=== PATIENT | female | born 1980 | race Caucasian/White ===

== ENCOUNTER 2018-10-13 12:04 | Inpatient (IN) | payer OTHER ==
[2018-10-13 12:31] LABS: ADD MAN DIFF? NO
[2018-10-13 12:35] LABS: BASOPHIL # 0.1 10^3/ul (0.0-0.1); BASOPHILS % 0.5 % (0.0-2.0); EOSINOPHILS % 0.2 % (0.0-7.0); HEMATOCRIT 38.5 % (37.0-47.0); HEMOGLOBIN 12.7 g/dl (12.0-16.0); LYMPHOCYTES # 2.9 10^3/ul (0.8-2.9); LYMPHOCYTES % 28.2 % (15.0-51.0); MEAN CORPUSCULAR VOLUME 90.8 fl (82.0-101.0); MEAN PLATELET VOLUME 11.6 fl (7.4-10.4); MONOCYTE # 0.6 10^3/ul (0.3-0.9); MONOCYTES % 5.4 % (0.0-11.0); NEUTROPHIL # 6.6 10^3/ul (1.6-7.5); PLATELET COUNT 187 10^3/UL (140-415); RED BLOOD COUNT 4.24 10^6/ul (4.20-5.40); RED CELL DISTRIBUTION WIDTH 12.9 % (11.5-14.5)
[2018-10-13 12:35] LABS: WHITE BLOOD COUNT 10.1 10^3/ul (4.8-10.8)
[2018-10-13 12:40] LABS: ADD UMIC NO; UR ASCORBIC ACID NEGATIVE (NEGATIVE); UR BILIRUBIN (Dip) NEGATIVE (NEGATIVE); UR BLOOD (Dip) NEGATIVE (NEGATIVE); UR CLARITY CLEAR (CLEAR); UR COLOR COLORLESS (YELLOW); UR GLUCOSE (Dip) NEGATIVE (NEGATIVE); UR KETONES (Dip) NEGATIVE (NEGATIVE); UR LEUKOCYTE ESTERASE (Dip) NEGATIVE Leu/ul (NEGATIVE); UR NITRITE (Dip) NEGATIVE (NEGATIVE); UR SPECIFIC GRAVITY (Dip) 1.001 (1.003-1.030); UR TOTAL PROTEIN (Dip) NEGATIVE (NEGATIVE); UR UROBILINOGEN (Dip) NEGATIVE (NEGATIVE)
[2018-10-13 12:53] LABS: ALANINE AMINOTRANSFERASE 14 IU/L (13-69); ALBUMIN 3.6 g/dl (3.3-4.9); ALBUMIN/GLOBULIN RATIO 1.09; ALKALINE PHOSPHATASE 291 IU/L (42-121); ANION GAP 9 (5-13); ASPARTATE AMINO TRANSFERASE 26 IU/L (15-46); BILIRUBIN,INDIRECT 0.5 mg/dl (0-1.1); BILIRUBIN,TOTAL 0.5 mg/dl (0.2-1.3); BLOOD UREA NITROGEN 7 mg/dl (7-20); CALCIUM 9.4 mg/dl (8.4-10.2); CARBON DIOXIDE 21 mmol/L (21-31); CHLORIDE 107 mmol/L (97-110); CREATININE 0.47 mg/dl (0.44-1.00); Estimated GFR > 60 mL/min (>60); GLUCOSE 81 mg/dl (70-220); SODIUM 137 mmol/L (135-144); TOTAL PROTEIN 6.9 g/dl (6.1-8.1); URIC ACID 4.5 mg/dl (3.1-7.9)
[2018-10-13 12:55] LABS: INR 0.77; PROTIME 10.9 Sec (11.9-14.9); PT RATIO 0.9
[2018-10-13 12:57] LABS: PARTIAL THROMBOPLASTIN TIME 27.5 Sec (23.0-35.0)
[2018-10-13] MEDS ORDERED: OXYTOCIN 30 UNITS/LR 500 ML IV ×2 (14:00)
[2018-10-13] MEDS ORDERED: BUTORPHANOL 2 MG INJ IV (14:00)
[2018-10-13] MEDS ORDERED: MISOPROSTOL 200 MCG TAB PR (14:00)
[2018-10-13] MEDS ORDERED: CARBOPROST 250 MCG INJ IM (14:00)
[2018-10-13] MEDS ORDERED: LIDOCAINE 1% (MPF) 30 ML INJ INJ (14:00)
[2018-10-13] MEDS ORDERED: METHYLERGONOVINE 0.2 MG INJ IM (14:00)
[2018-10-13] MEDS: LACTATED RINGER'S 1,000 ML IV (14:10)
[2018-10-13 14:12] LABS: GLUCOSE 75 mg/dl (70-220)
[2018-10-13] MEDS: DEXTROSE 5%-LR 1,000 ML IV (15:09)
[2018-10-13] MEDS: OXYTOCIN 30 UNITS/LR 500 ML IV (15:11)
[2018-10-13 20:47] LABS: RAPID PLASMA REAGIN NONREACTIVE (NR)
[2018-10-14] MEDS: LACTATED RINGER'S 1,000 ML IV ×2 (05:15→13:04)
[2018-10-14] MEDS: DEXTROSE 5%-LR 1,000 ML IV ×2 (07:32→18:50)
[2018-10-14] MEDS ORDERED: FENTAnyl 50 MCG/ML VIAL (12:37)
[2018-10-14] MEDS ORDERED: FENTAnyl 2MCG/ML-ROPIV 0.2% 100 ML (12:37)
[2018-10-14] MEDS ORDERED: FENTAnyl 2MCG/ML-ROPIV 0.2% 100 ML BAG EPI (13:00)
[2018-10-14] MEDS ORDERED: NALOXONE (0.4 MG/ML) INJ IV (13:00)
[2018-10-14] MEDS: OXYTOCIN 30 UNITS/LR 500 ML IV ×2 (15:43→22:03)
[2018-10-14] MEDS: MISOPROSTOL 200 MCG TAB PO (15:53)
[2018-10-14] MEDS: MINERAL OIL LIGHT 10 ML VIAL TOP (15:55)
[2018-10-14] MEDS: MAGNESIUM SULFATE 4 GM/100 ML 100 ML IV (17:06)
[2018-10-14] MEDS: MAGNESIUM SULFATE 20 GM/500 ML 500 ML IV (17:26)
[2018-10-14] MEDS: LACTATED RINGER'S 1,000 ML IV* (18:50)
[2018-10-14] MEDS ORDERED: OXYTOCIN 30 UNITS/LR 500 ML IV (19:00)
[2018-10-14] MEDS ORDERED: BENZOCAINE 20% 56 ML SPRAY TOP (19:00)
[2018-10-14] MEDS ORDERED: WITCH HAZEL/GLYCERIN PAD PR (19:00)
[2018-10-14] MEDS ORDERED: ONDANSETRON 4 MG INJ IV (19:00)
[2018-10-14] MEDS ORDERED: DIBUCAINE 1% 30 GM OINT TOP (19:00)
[2018-10-14] MEDS ORDERED: ACETAMINOPHEN 325 MG TAB PO (19:00)
[2018-10-14] MEDS ORDERED: CARBOPROST 250 MCG INJ IM (19:00)
[2018-10-14] MEDS ORDERED: LANOLIN HPA 1 PKT TOP (19:00)
[2018-10-14] MEDS ORDERED: DIPHENHYDRAMINE 50 MG INJ IV (19:00)
[2018-10-14] MEDS ORDERED: MISOPROSTOL 200 MCG TAB PR (19:00)
[2018-10-14] MEDS ORDERED: METHYLERGONOVINE 0.2 MG INJ IM (19:00)
[2018-10-14] MEDS ORDERED: ZOLPIDEM 5 MG TAB PO (19:00)
[2018-10-14] MEDS ORDERED: SENNA/DOCUSATE NA (8.6MG/50MG) TAB PO (19:00)
[2018-10-14] MEDS ORDERED: OXYCODONE/ASPIRIN (4.88/325) TAB PO (19:00)
[2018-10-15] MEDS: IBUPROFEN 600 MG TAB PO ×5 (00:19→23:38)
[2018-10-15 01:17] LABS: MAGNESIUM 4.7 mg/dl (1.7-2.5)
[2018-10-15] MEDS: LACTATED RINGER'S 1,000 ML IV* ×3 (02:50→18:50)
[2018-10-15] MEDS: DEXTROSE 5%-LR 1,000 ML IV ×3 (02:50→18:50)
[2018-10-15] MEDS: MAGNESIUM SULFATE 20 GM/500 ML 500 ML IV ×2 (03:13→17:00)
[2018-10-15 07:14] LABS: ADD MAN DIFF? NO
[2018-10-15 07:19] LABS: BASOPHILS % 0.3 % (0.0-2.0); EOSINOPHILS % 0.3 % (0.0-7.0); HEMATOCRIT 38.8 % (37.0-47.0); HEMOGLOBIN 12.9 g/dl (12.0-16.0); LYMPHOCYTES % 16.3 % (15.0-51.0); MEAN CORPUSCULAR HGB CONC 33.2 g/dl (32.0-37.0); MEAN CORPUSCULAR VOLUME 90.2 fl (82.0-101.0); MEAN PLATELET VOLUME 11.3 fl (7.4-10.4); MONOCYTE # 0.6 10^3/ul (0.3-0.9); NEUTROPHIL # 9.3 10^3/ul (1.6-7.5); NEUTROPHILS % 77.6 % (39.0-77.0); PLATELET COUNT 167 10^3/UL (140-415); RED CELL DISTRIBUTION WIDTH 13.2 % (11.5-14.5)
[2018-10-15 07:40] LABS: MAGNESIUM 6.1 mg/dl (1.7-2.5)
[2018-10-15 13:33] LABS: MAGNESIUM 5.4 mg/dl (1.7-2.5)
[2018-10-15 22:05] LABS: RHOGAM PROFILE 1 1
[2018-10-16] MEDS: IBUPROFEN 600 MG TAB PO ×2 (05:46→12:34)
[2018-10-16] MEDS: DIPHTH/TET/ACEL PERTUSS (ADULT) 0.5 ML VIAL IM* (09:00)
[2018-10-16] MEDS: MEASLES,MUMPS,RUBELLA VACCINE INJ SC* (09:00)
== END 2018-10-16 15:26 | disposition home or self-care (01) | DRG 807 ==
LOC: OBT 12:04 → L-D 12:05 → PP1 10-14 18:26 → OBT 12:36 → L-D 12:36
PROVIDERS: Pediatrics Neonatal-Perinatal Medicine
PROC: 10E0XZZ Delivery of Products of Conception, External Approach (ICD-10-PCS; principal; 2018-10-15)
DX: O13.4 Gestational [pregnancy-induced] hypertension without significant proteinuria, complicating childbirth (principal); Z37.0 Single live birth; O14.94 Unspecified pre-eclampsia, complicating childbirth; O24.420 Gestational diabetes mellitus in childbirth, diet controlled; Z3A.37 37 weeks gestation of pregnancy
CPT/HCPCS: 62322; 76815; 76818; 80053; 81003; 82947; 82962; 83735; 84560; 85025; 85610; 85730; 86592; 86850; 86885; 86900; 86901

== ENCOUNTER 2019-02-08 09:55 | Day surgery (SDC) | payer OTHER ==
[2019-02-08] MEDS ORDERED: PROPOFOL 20 ML (11:26)
[2019-02-08] MEDS ORDERED: ROCURONIUM 50 MG INJ (11:26)
[2019-02-08] MEDS ORDERED: ONDANSETRON 4 MG INJ (11:26)
[2019-02-08] MEDS ORDERED: NEOSTIGMINE 3 MG/3 ML SYRINGE (11:26)
[2019-02-08] MEDS ORDERED: GLYCOPYRROLATE 0.4 MG INJ (11:26)
[2019-02-08] MEDS ORDERED: MIDAZOLAM 1 MG/ML 2 ML INJ (11:26)
[2019-02-08] MEDS ORDERED: FENTAnyl 50 MCG/ML VIAL (11:26)
[2019-02-08] MEDS ORDERED: CEFAZOLIN 1 GM INJ (11:26)
[2019-02-08 11:27] LABS: ADD MAN DIFF? NO
[2019-02-08] MEDS ORDERED: DEXAMETHASONE 4 MG/ML 5 ML INJ (11:27)
[2019-02-08 11:29] LABS: BASOPHIL # 0.1 10^3/ul (0.0-0.1); BASOPHILS % 0.6 % (0.0-2.0); EOSINOPHILS # 0.1 10^3/ul (0.0-0.5); EOSINOPHILS % 1.2 % (0.0-7.0); HEMATOCRIT 41.5 % (37.0-47.0); HEMOGLOBIN 13.6 g/dl (12.0-16.0); LYMPHOCYTES # 2.3 10^3/ul (0.8-2.9); LYMPHOCYTES % 29.4 % (15.0-51.0); MEAN CORPUSCULAR HEMOGLOBIN 29.9 pg (29.0-33.0); MEAN CORPUSCULAR HGB CONC 32.8 g/dl (32.0-37.0); MEAN CORPUSCULAR VOLUME 91.2 fl (82.0-101.0); MEAN PLATELET VOLUME 10.6 fl (7.4-10.4); MONOCYTE # 0.5 10^3/ul (0.3-0.9); MONOCYTES % 5.9 % (0.0-11.0); NEUTROPHIL # 4.9 10^3/ul (1.6-7.5); NEUTROPHILS % 62.6 % (39.0-77.0); PLATELET COUNT 281 10^3/UL (140-415); RED BLOOD COUNT 4.55 10^6/ul (4.20-5.40)
[2019-02-08 11:29] LABS: WHITE BLOOD COUNT 7.8 10^3/ul (4.8-10.8)
[2019-02-08] MEDS ORDERED: ROPIVACAINE 0.5 % 30 ML VIAL (11:40)
[2019-02-08] MEDS ORDERED: hydrALAzine 20 MG INJ IV (12:00)
[2019-02-08] MEDS ORDERED: HYDROmorphONE 1 MG/5 ML IV SYRINGE IV ×2 (12:00)
[2019-02-08] MEDS ORDERED: LACTATED RINGER'S 1,000 ML IV (12:00)
[2019-02-08] MEDS ORDERED: LABETALOL HCL 20MG INJ IV (12:00)
[2019-02-08] MEDS ORDERED: TRIMETHOBENZAMIDE 100 MG/ML VIAL IM (12:00)
[2019-02-08] MEDS ORDERED: ALBUTEROL 0.083% (NEB) 2.5 MG/3 ML AMP HHN (12:00)
[2019-02-08] MEDS ORDERED: OXYCODONE/ACETAMINOPHEN (5/325) TAB PO ×2 (12:00)
[2019-02-08] MEDS ORDERED: EPHEDrine 25 MG/5 ML SYG IV (12:00)
[2019-02-08] MEDS ORDERED: MIDAZOLAM 1 MG/ML 2 ML INJ IV (12:00)
[2019-02-08] MEDS ORDERED: FENTAnyl 50 MCG/ML VIAL IV ×3 (12:00)
[2019-02-08] MEDS ORDERED: DIPHENHYDRAMINE 50 MG INJ IV (12:00)
[2019-02-08] MEDS ORDERED: IPRATROPIUM (NEB) 0.5 MG/2.5 ML AMP HHN (12:00)
[2019-02-08] MEDS: ONDANSETRON 4 MG INJ IV (13:40)
[2019-02-08] MEDS: HYDROmorphONE 1 MG/5 ML IV SYRINGE IV (13:40)
[2019-02-08] MEDS: MEPERIDINE 25 MG INJ IV (13:40)
== END 2019-02-08 15:21 | disposition home or self-care (01) ==
LOC: SDS 09:55
DX: Z30.2 Encounter for sterilization (principal)
CPT/HCPCS: 58670; 84702; 84703; 85025; 86850; 86900; 86901